=== PATIENT | female | born 1990 | race Hispanic/Latino ===

== ENCOUNTER 2022-08-20 10:52 | Emergency (ER) | payer OTHER ==
--- OUTSIDE RECORDS SUMMARY | 2022-08-20 10:59 | XMS REPORT | Continuity of Care Document ---
:1990 Author Organization [facility] t Address [address] [place] [address] Care Team Providers Name Role Phone Anish Mendoza MD Primary Care Physician CAITIE PERALES Attending Clinician Unavailable Gabby Bojorquez Attending Clinician GABBY BOJORQUEZ Attending Clinician Unavailable WELLNESS Attending Clinician Unavailable Payers Payer Name Policy Type Policy Number Effective Date Expiration Date Kasandra PAL- [id number] 2021 00:00:00 [employer] Problems Condition Condition Condition Status Onset Resolution Last Treating Co mments Source Name Details Category Date Date Treatment Clinician Date UNK UNK Diagnosis Active 2020-09-11 Mem oria Active 08-27 14:03:00 l 08/27/2020 00:00: Rodrigo kyle [address] No known No known Disease Baylo r active active [place] problems problems of Medicin e Gallbladde Gallbladd Problem Active 2020-09-27 Memoria r calculus er 00:53:41 l (disorder) calculus Herm toni (disorder) Active Problem 09/27/2020 Medical Group,[facility] History of History Problem Active 2020-09-27 Memoria - of - 00:53:41 l gynecologi gynecologi He rmann abhilash abhilash disorder disorder (context-d (context-d ependent ependent category) category) Active Problem 09/27/2020 Medical Group, [facility] Simple Simple Problem Active 2020-09-27 Chris chico obesity obesity 00:53:41 l (disorder) (disorder) He rmann Active Problem 09/27/2020 Medical Group Allergies, Adverse Reactions, Alerts Allergy Allergy Status Severity Reaction(s) Onset Inactive Treating Comm ents Source Name Type Date Date Clinician No Known DA Active U 2012-04 [facility] No Known DA Active U NONE 2012-04 [facility] No Known No Known Active Memori a Medicati Medicati l on on [facility] Social History Social Habit Start Date Stop Date Quantity Comments Source History [facility] ge Alcohol Std of Medicine Drinks History [facility] ge Alcohol Binge of Medicine History [facility] ge Alcohol Frequency of Medi cine Alcohol Comment 2021-07-03 2021-07-03 Occasional [facility] 00:00:00 00:00:00 of Medicine Tobacco use and 2021-07-03 2021-07-03 Smokeless tobacco [facility] exposure 00:00:00 00:00:00 non-user of Medicine Alcohol intake 2021-07-03 2021-07-03 0 /d [facility] 00:00:00 00:00:00 of Medicine Exposure to 2021-06-22 2021-07-02 [facility] SARS-CoV-2 00:00:00 10:31:00 of Medicine (event) Social History 2020-08-27 2020-08-27 [facility] sera 19:03:59 19:03:59 Sex [birth year] [facility] 00:00:00 00:00:00 of Medicine Smoking Status Start Date Stop Date Source Never smoked tobacco [facility] Armando ege of Medicine Medications Ordered Filled Start Stop Current Ordering Indication Dosage Frequency Signature Comments Components Source Medication Medication Date Date Medication? Clinician (SIG) Name Name 5-Methyltet Yes Pill form B aylor rahydrofola [address] [employer] (METHYL 09:44: of FOLATE) 24 Medicin POWD e Labetalol No 10 mg, Memori a 09-11 Route: l 15:38: IVP, [place] 00 Q5Min, Dosing Weight 90.568, kg, PRN Elevated BP, Start date: 09/11/20 10:38:00 CDT, Duration: 5 doses or times, Stop date: Limited # of times Acetaminoph 2021-0 No 1,000 mg, M emoria en 09-11 Route: PO, l 15:38: Drug form: Ralph 00 TAB, ONCE, Dosing Weight 90.568, kg, PRN Pain Score 1-3, Start date: 09/11/20 10:38:00 CDT Labetalol 1-0 No 10 mg, Memori a 09-11 Route: l 15:38: IVP, [place] 00 Q5Min, Dosing Weight 90.568, kg, PRN Elevated BP, Start date: 09/11/20 10:38:00 CDT, Duration: 5 doses or times, Stop date: Limited # of times Acetaminoph 2021-0 No 1,000 mg, M emoria en 09-11 Route: PO, l 15:38: Drug form: Ralph 00 TAB, ONCE, Dosing Weight 90.568, kg, PRN Pain Score 1-3, Start date: 09/11/20 10:38:00 CDT Fentanyl 1-0 No 25 Memoria 6-02 microgram, l 15:38: Route: Ralph 00 IVP, Q5Min, Dosing Weight 90.568, kg, PRN Pain Score 4-6, Priority: Routine, Start date: 09/11/20 10:38:00 CDT, Duration: 4 doses or times, Stop date: Limited # of times Fentanyl 2021-0 No 25 Memoria 6-02 microgram, l 15:38: Route: Ralph 00 IVP, Q5Min, Dosing Weight 90.568, kg, PRN Pain Score 4-6, Priority: Routine, Start date: 09/11/20 10:38:00 CDT, Duration: 4 doses or times, Stop date: Limited # of times Hydromorpho 2021-0 No 0.5 mg, Mem oria ne 09-11 Route: l 15:38: IVP, [place] 00 Q5Min, Dosing Weight 90.568, kg, PRN Pain Score 7-10, Start date: 09/11/20 10:38:00 CDT, Duration: 4 doses or times, Stop date: Limited # of times Flumazenil 1-0 No 0.2 mg, Chris ch[place] 09-11 Route: l 15:38: IVP, PRN, [place] 00 Dosing Weight 90.568, kg, PRN Benzodiaze pine Reversal, Initial dose, Start date: 09/11/20 10:38:00 CDT, Duration: 30 day, Stop date: 10/11/20 10:37:00 CDT Naloxone 1-0 No 0.4 mg, Memori a 09-11 Route: l 15:38: IVP, [place] 00 Q2MIN, Dosing Weight 90.568, kg, PRN Narcotic Reversal, Start date: 09/11/20 10:38:00 CDT, Duration: 8 doses or times, Stop date: Limited # of times Meperidine 2020-0 No 12.5 mg, Mem oria 09-11 Route: l 15:38: IVP, [place] 00 Q30Min, Dosing Weight 90.568, kg, PRN Other -See Comment, For shivering, Start date: 09/11/20 10:38:00 CDT, Duration: 2 doses or times, Stop date: Limited # of times Ondansetron 1-0 No 4 mg, Memor ia 09-11 Route: l 15:38: IVP, ONCE, [place] 00 Dosing Weight 90.568, kg, PRN Nausea & Vomiting, Start date: 09/11/20 10:38:00 CDT Hydromorpho 1-0 No 0.5 mg, Mem oria ne 09-11 Route: l 15:38: IVP, [place] 00 Q5Min, Dosing Weight 90.568, kg, PRN Pain Score 7-10, Start date: 09/11/20 10:38:00 CDT, Duration: 4 doses or times, Stop date: Limited # of times Flumazenil 1-0 No 0.2 mg, Chris ch[place] 09-11 Route: l 15:38: IVP, PRN, [place] 00 Dosing Weight 90.568, kg, PRN Benzodiaze pine Reversal, Initial dose, Start date: 09/11/20 10:38:00 CDT, Duration: 30 day, Stop date: 10/11/20 10:37:00 CDT Naloxone 2020-0 No 0.4 mg, Memori a 09-11 Route: l 15:38: IVP, [place] 00 Q2MIN, Dosing Weight 90.568, kg, PRN Narcotic Reversal, Start date: 09/11/20 10:38:00 CDT, Duration: 8 doses or times, Stop date: Limited # of times Meperidine 1-0 No 12.5 mg, Mem oria 09-11 Route: l 15:38: IVP, [place] 00 Q30Min, Dosing Weight 90.568, kg, PRN Other -See Comment, For shivering, Start date: 09/11/20 10:38:00 CDT, Duration: 2 doses or times, Stop date: Limited # of times Ondansetron 1-0 No 4 mg, Memor ia 09-11 Route: l 15:38: IVP, ONCE, [place] 00 Dosing Weight 90.568, kg, PRN Nausea & Vomiting, Start date: 09/11/20 10:38:00 CDT Labetalol 1-0 No 10 mg, Memori a 09-11 Route: l 15:38: IVP, [place] 00 Q5Min, Dosing Weight 90.568, kg, PRN Elevated BP, Start date: 09/11/20 10:38:00 CDT, Duration: 5 doses or times, Stop date: Limited # of times Acetaminoph 2020-0 No 1,000 mg, M emoria en 09-11 Route: PO, l 15:38: Drug form: Ralph 00 TAB, ONCE, Dosing Weight 90.568, kg, PRN Pain Score 1-3, Start date: 09/11/20 10:38:00 CDT Fentanyl 2020-0 No 25 Memoria -02 microgram, l 15:38: Route: [place] 00 IVP, Q5Min, Dosing Weight 90.568, kg, PRN Pain Score 4-6, Priority: Routine, Start date: 09/11/20 10:38:00 CDT, Duration: 4 doses or times, Stop date: Limited # of times Hydromorpho 1-0 No 0.5 mg, Mem oria ne 6-02 Route: l 15:38: IVP, [place] 00 Q5Min, Dosing Weight 90.568, kg, PRN Pain Score 7-10, Start date: 09/11/20 10:38:00 CDT, Duration: 4 doses or times, Stop date: Limited # of times Flumazenil 2020-0 No 0.2 mg, Chris chico 09-11 Route: l 15:38: IVP, PRN, [place] 00 Dosing Weight 90.568, kg, PRN Benzodiaze pine Reversal, Initial dose, Start date: 09/11/20 10:38:00 CDT, Duration: 30 day, Stop date: 10/11/20 10:37:00 CDT Naloxone 2020-0 No 0.4 mg, Memori a 09-11 Route: l 15:38: IVP, [place] 00 Q2MIN, Dosing Weight 90.568, kg, PRN Narcotic Reversal, Start date: 09/11/20 10:38:00 CDT, Duration: 8 doses or times, Stop date: Limited # of times Meperidine 2020-0 No 12.5 mg, Mem oria 09-11 Route: l 15:38: IVP, [place] 00 Q30Min, Dosing Weight 90.568, kg, PRN Other -See Comment, For shivering, Start date: 09/11/20 10:38:00 CDT, Duration: 2 doses or times, Stop date: Limited # of times Ondansetron 2020-0 No 4 mg, Memor ia 09-11 Route: l 15:38: IVP, ONCE, [place] 00 Dosing Weight 90.568, kg, PRN Nausea & Vomiting, Start date: 09/11/20 10:38:00 CDT Labetalol 2020-0 No 10 mg, Memori a 09-11 Route: l 15:38: IVP, [place] 00 Q5Min, Dosing Weight 90.568, kg, PRN Elevated BP, Start date: 09/11/20 10:38:00 CDT, Duration: 5 doses or times, Stop date: Limited # of times Acetaminoph 2020-0 No 1,000 mg, M emoria en 09-11 Route: PO, l 15:38: Drug form: [place] 00 TAB, ONCE, Dosing Weight 90.568, kg, PRN Pain Score 1-3, Start date: 09/11/20 10:38:00 CDT Fentanyl 2020-0 No 25 Memoria - microgram, l 15:38: Route: [place] 00 IVP, Q5Min, Dosing Weight 90.568, kg, PRN Pain Score 4-6, Priority: Routine, Start date: 09/11/20 10:38:00 CDT, Duration: 4 doses or times, Stop date: Limited # of times Hydromorpho 2020-0 No 0.5 mg, Mem oria ne 09-11 Route: l 15:38: IVP, [place] 00 Q5Min, Dosing Weight 90.568, kg, PRN Pain Score 7-10, Start date: 09/11/20 10:38:00 CDT, Duration: 4 doses or times, Stop date: Limited # of times Flumazenil 2020-0 No 0.2 mg, Chris chico 09-11 Route: l 15:38: IVP, PRN, [place] 00 Dosing Weight 90.568, kg, PRN Benzodiaze pine Reversal, Initial dose, Start date: 09/11/20 10:38:00 CDT, Duration: 30 day, Stop date: 10/11/20 10:37:00 CDT Naloxone 2020-0 No 0.4 mg, Memori a 09-11 Route: l 15:38: IVP, [place] 00 Q2MIN, Dosing Weight 90.568, kg, PRN Narcotic Reversal, Start date: 09/11/20 10:38:00 CDT, Duration: 8 doses or times, Stop date: Limited # of times Meperidine 2020-0 No 12.5 mg, Mem oria 09-11 Route: l 15:38: IVP, [place] 00 Q30Min, Dosing Weight 90.568, kg, PRN Other -See Comment, For shivering, Start date: 09/11/20 10:38:00 CDT, Duration: 2 doses or times, Stop date: Limited # of times Ondansetron 2020-0 No 4 mg, Memor ia 09-11 Route: l 15:38: IVP, ONCE, [place] 00 Dosing Weight 90.568, kg, PRN Nausea & Vomiting, Start date: 09/11/20 10:38:00 CDT glycopyrrol 0 No Route: IV, Memoria ate (ANES) 09-11 Drug form: l 15:36: INJ, ONCE, Stop date: 09/11/20 10:36:00 CDT neostigmine 0 No Route: IV, Memoria (ANES) 09-11 Drug form: l 15:36: INJ, ONCE, Stop date: 09/11/20 10:36:00 CDT glycopyrrol 0 No Route: IV, Memoria ate (ANES) 09-11 Drug form: l 15:36: INJ, ONCE, Stop date: 09/11/20 10:36:00 CDT neostigmine 0 No Route: IV, Memoria (ANES) 09-11 Drug form: l 15:36: INJ, ONCE, Stop date: 09/11/20 10:36:00 CDT glycopyrrol 0 No Route: IV, Memoria ate (ANES) 09-11 Drug form: l 15:36: INJ, ONCE, Stop date: 09/11/20 10:36:00 CDT neostigmine 0 No Route: IV, Memoria (ANES) 09-11 Drug form: l 15:36: INJ, ONCE, Stop date: 09/11/20 10:36:00 CDT glycopyrrol 0 No Route: IV, Memoria ate (ANES) 09-11 Drug form: l 15:36: INJ, ONCE, Stop date: 09/11/20 10:36:00 CDT neostigmine 0 No Route: IV, Memoria (ANES) 09-11 Drug form: l 15:36: INJ, ONCE, Stop date: 09/11/20 10:36:00 CDT phenylephri 0 No Route: IV, Memoria ne (ANES) 09-11 Drug form: l 15:33: INJ, ONCE, Stop date: 09/11/20 10:33:00 CDT Docusate 0 Yes 100 mg = 1 Mem oria Sodium 100 6-02 cap, PO, l MG Oral 15:33: BID, PRN Rodrigo n Capsule 00 Constipati [Colace] on, # 20 cap, 0 Refill(s), Pharmacy: [facility], 165.1, cm, 09/04/20 9:49:00 CDT, Height, 90.568, kg, 09/04/20 9:49:00 CDT, Weight Acetaminoph 0 Yes 1 tab, PO, Memoria en 300 MG / 6-02 Q6H, PRN l Codeine 15:33: pain, X 7 Marce nn Phosphate 00 day, # 28 30 MG Oral tab, 0 Tablet Refill(s), [Tylenol Pharmacy: with [facility], 165.1, cm, 09/04/20 9:49:00 CDT, Height, 90.568, kg, 09/04/20 9:49:00 CDT, Weight phenylephri No Route: IV, Memoria ne (ANES) 09-11 Drug form: l 15:33: INJ, ONCE, [place] 00 Stop date: 09/11/20 10:33:00 CDT Docusate Yes 100 mg = 1 Mem oria Sodium 100 6-02 cap, PO, l MG Oral 15:33: BID, PRN Rodrigo n Capsule 00 Constipati [Colace] on, # 20 cap, 0 Refill(s), Pharmacy: [facility], 165.1, cm, 09/04/20 9:49:00 CDT, Height, 90.568, kg, 09/04/20 9:49:00 CDT, Weight Acetaminoph 0 Yes 1 tab, PO, Memoria en 300 MG / 6-02 Q6H, PRN l Codeine 15:33: pain, X 7 Marce nn Phosphate 00 day, # 28 30 MG Oral tab, 0 Tablet Refill(s), [Tylenol Pharmacy: with [facility]] [facility]acy 3298, 165.1, cm, 09/04/20 9:49:00 CDT, Height, 90.568, kg, 09/04/20 9:49:00 CDT, Weight phenylephri 2021-0 No Route: IV, Memoria ne (ANES) 09-11 Drug form: l 15:33: INJ, ONCE, Stop date: 09/11/20 10:33:00 CDT Docusate Yes 100 mg = 1 Mem oria Sodium 100 6-02 cap, PO, l MG Oral 15:33: BID, PRN Rodrigo n Capsule 00 Constipati [Colace] on, # 20 cap, 0 Refill(s), Pharmacy: [facility], 165.1, cm, 09/04/20 9:49:00 CDT, Height, 90.568, kg, 09/04/20 9:49:00 CDT, Weight Acetaminoph Yes 1 tab, PO, Memoria en 300 MG / 6-02 Q6H, PRN l Codeine 15:33: pain, X 7 Marce nn Phosphate 00 day, # 28 30 MG Oral tab, 0 Tablet Refill(s), [Tylenol Pharmacy: with [facility]] Pharmacy 3298, 165.1, cm, 09/04/20 9:49:00 CDT, Height, 90.568, kg, 09/04/20 9:49:00 CDT, Weight phenylephri No Route: IV, Memoria ne (ANES) 09-11 Drug form: l 15:33: INJ, ONCE, Stop date: 09/11/20 10:33:00 CDT Docusate Yes 100 mg = 1 Mem oria Sodium 100 6-02 cap, PO, l MG Oral 15:33: BID, PRN Rodrigo n Capsule 00 Constipati [Colace] on, # 20 cap, 0 Refill(s), Pharmacy: [facility], 165.1, cm, 09/04/20 9:49:00 CDT, Height, 90.568, kg, 09/04/20 9:49:00 CDT, Weight Acetaminoph Yes 1 tab, PO, Memoria en 300 MG / 6-02 Q6H, PRN l Codeine 15:33: pain, X 7 Marce nn Phosphate 00 day, # 28 30 MG Oral tab, 0 Tablet Refill(s), [facility], 165.1, cm, 09/04/20 9:49:00 CDT, Height, 90.568, kg, 09/04/20 9:49:00 CDT, Weight lidocaine 2020-0 No Route: IV, Me moria (ANES) 09-11 Drug form: l 15:18: INJ, ONCE, [place] 00 Stop date: 09/11/20 10:18:00 CDT rocuronium 2020-0 No Route: IV, M emoria (ANES) 09-11 Drug form: l 15:18: INJ, ONCE, Stop date: 09/11/20 10:18:00 CDT succinylcho 2020-0 No Route: IV, Memoria line (ANES) 09-11 Drug form: l 15:18: INJ, ONCE, Stop date: 09/11/20 10:18:00 CDT dexamethaso 2020-0 No Route: IV, Memoria ne (ANES) 09-11 Drug form: l 15:18: INJ, ONCE, Stop date: 09/11/20 10:18:00 CDT midazolam 2020-0 No Route: IV, Me moria (ANES) 09-11 Drug form: l 15:18: SOLN, ONCE, Stop date: 09/11/20 10:18:00 CDT lidocaine 2020-0 No Route: IV, Me moria (ANES) 09-11 Drug form: l 15:18: INJ, ONCE, Stop date: 09/11/20 10:18:00 CDT rocuronium 2020-0 No Route: IV, M emoria (ANES) 09-11 Drug form: l 15:18: INJ, ONCE, Stop date: 09/11/20 10:18:00 CDT succinylcho 2020-0 No Route: IV, Memoria line (ANES) 09-11 Drug form: l 15:18: INJ, ONCE, Stop date: 09/11/20 10:18:00 CDT dexamethaso 2020-0 No Route: IV, Memoria ne (ANES) 09-11 Drug form: l 15:18: INJ, ONCE, [place] 00 Stop date: 09/11/20 10:18:00 CDT midazolam 2020-0 No Route: IV, Me moria (ANES) 09-11 Drug form: l 15:18: SOLN, [place] 00 ONCE, Stop date: 09/11/20 10:18:00 CDT lidocaine 2020-0 No Route: IV, Me moria (ANES) 09-11 Drug form: l 15:18: INJ, ONCE, [place] 00 Stop date: 09/11/20 10:18:00 CDT rocuronium 2020-0 No Route: IV, M emoria (ANES) 09-11 Drug form: l 15:18: INJ, ONCE, [place] 00 Stop date: 09/11/20 10:18:00 CDT succinylcho 2020-0 No Route: IV, Memoria line (ANES) 09-11 Drug form: l 15:18: INJ, ONCE, Stop date: 09/11/20 10:18:00 CDT dexamethaso 2020-0 No Route: IV, Memoria ne (ANES) 09-11 Drug form: l 15:18: INJ, ONCE, [place] 00 Stop date: 09/11/20 10:18:00 CDT midazolam 2020-0 No Route: IV, Me moria (ANES) 09-11 Drug form: l 15:18: SOLN, [place] 00 ONCE, Stop date: 09/11/20 10:18:00 CDT midazolam 2020-0 No Route: IV, Me moria (ANES) 09-11 Drug form: l 15:18: SOLN, [place] 00 ONCE, Stop date: 09/11/20 10:18:00 CDT lidocaine 2020-0 No Route: IV, Me moria (ANES) 09-11 Drug form: l 15:18: INJ, ONCE, [place] 00 Stop date: 09/11/20 10:18:00 CDT rocuronium 2020-0 No Route: IV, M emoria (ANES) 09-11 Drug form: l 15:18: INJ, ONCE, [place] 00 Stop date: 09/11/20 10:18:00 CDT succinylcho 2020-0 No Route: IV, Memoria line (ANES) - Drug form: l 15:18: INJ, ONCE, Stop date: 09/11/20 10:18:00 CDT dexamethaso 2020-0 No Route: IV, Memoria ne (ANES) 6- Drug form: l 15:18: INJ, ONCE, Stop date: 09/11/20 10:18:00 CDT ondansetron 2020-0 No Route: IV, Memoria (ANES) 6- Drug form: l 15:12: INJ, ONCE, Stop date: 09/11/20 10:12:00 CDT ondansetron 2020-0 No Route: IV, Memoria (ANES) 6- Drug form: l 15:12: INJ, ONCE, Stop date: 09/11/20 10:12:00 CDT ondansetron 2020-0 No Route: IV, Memoria (ANES) 6- Drug form: l 15:12: INJ, ONCE, Stop date: 09/11/20 10:12:00 CDT ondansetron 2020-0 No Route: IV, Memoria (ANES) 09-11 Drug form: l 15:12: INJ, ONCE, Stop date: 09/11/20 10:12:00 CDT fentaNYL 2020-0 No Route: IV, Mem oria (ANES) 09-11 Drug form: l 15:07: INJ, ONCE, Stop date: 09/11/20 10:07:00 CDT propofol 2020-0 No Route: IV, Mem oria (ANES) 6- Drug form: l 15:07: INJ, ONCE, Stop date: 09/11/20 10:07:00 CDT ceFAZolin 2020-0 No Route: IV, Me moria (ANES) 6- Drug form: l 15:07: INJ, ONCE, Stop date: 09/11/20 10:07:00 CDT fentaNYL 2020-0 No Route: IV, Mem oria (ANES) - Drug form: l 15:07: INJ, ONCE, Stop date: 09/11/20 10:07:00 CDT propofol 2021-0 No Route: IV, Mem oria (ANES) 6- Drug form: l 15:07: INJ, ONCE, Stop date: 09/11/20 10:07:00 CDT ceFAZolin 2020-0 No Route: IV, Me moria (ANES) 6- Drug form: l 15:07: INJ, ONCE, Stop date: 09/11/20 10:07:00 CDT fentaNYL 2020-0 No Route: IV, Mem oria (ANES) 6- Drug form: l 15:07: INJ, ONCE, Stop date: 09/11/20 10:07:00 CDT propofol 2020-0 No Route: IV, Mem oria (ANES) 6- Drug form: l 15:07: INJ, ONCE, Stop date: 09/11/20 10:07:00 CDT ceFAZolin 2020-0 No Route: IV, Me moria (ANES) 6- Drug form: l 15:07: INJ, ONCE, Stop date: 09/11/20 10:07:00 CDT fentaNYL 2020-0 No Route: IV, Mem oria (ANES) 6- Drug form: l 15:07: INJ, ONCE, Stop date: 09/11/20 10:07:00 CDT propofol 2020-0 No Route: IV, Mem oria (ANES) 6- Drug form: l 15:07: INJ, ONCE, Stop date: 09/11/20 10:07:00 CDT ceFAZolin 2020-0 No Route: IV, Me moria (ANES) 6-02 Drug form: l 15:07: INJ, ONCE, Stop date: 09/11/20 10:07:00 CDT Lactated 2020-0 No Route: IV, Mem oria Ringers 6-02 Total l Injection 14:32: Volume: Marce nn IV (ANES) 00 1,000, 1000 mL Start date: 09/11/20 9:32:00 CDT, Stop date: 09/11/20 10:32:00 CDT Lactated 2020-0 No Route: IV, Mem oria Ringers 6-02 Total l Injection 14:32: Volume: Marce nn IV (ANES) 00 1,000, 1000 mL Start date: 09/11/20 9:32:00 CDT, Stop date: 09/11/20 10:32:00 CDT Lactated 2020-0 No Route: IV, Mem oria Ringers 6-02 Total l Injection 14:32: Volume: Marce nn IV (ANES) 00 1,000, 1000 mL Start date: 09/11/20 9:32:00 CDT, Stop date: 09/11/20 10:32:00 CDT Lactated 2020-0 No Route: IV, Mem oria Ringers 6-02 Total l Injection 14:32: Volume: Marce nn IV (ANES) 00 1,000, 1000 mL Start date: 09/11/20 9:32:00 CDT, Stop date: 09/11/20 10:32:00 CDT Calcium 2020-0 No 1,000 mL, Memor ia Chloride 6-02 Rate: 75 l 0.0014 13:37: ml/hr, Ralph MEQ/ML / 00 Infuse Potassium over: 13.3 Chloride hr, Route: 0.004 IV, Dosing MEQ/ML / Weight Sodium 90.568 kg, Chloride Total 0.103 Volume: MEQ/ML / 1,000, Sodium Start Lactate date: 0.028 09/11/20 MEQ/ML 8:37:00 Injectable CDT, Solution Duration: 1 day, Stop date: 09/12/20 8:36:00 CDT, BSA: 2.07 m2, 0 Calcium 2020-0 No 1,000 mL, Memor ia Chloride 6-02 Rate: 75 l 0.0014 13:37: ml/hr, [place] MEQ/ML / 00 Infuse Potassium over: 13.3 Chloride hr, Route: 0.004 IV, Dosing MEQ/ML / Weight Sodium 90.568 kg, Chloride Total 0.103 Volume: MEQ/ML / 1,000, Sodium Start Lactate date: 0.028 09/11/20 MEQ/ML 8:37:00 Injectable CDT, Solution Duration: 1 day, Stop date: 09/12/20 8:36:00 CDT, BSA: 2.07 m2, 0 Calcium 2020-0 No 1,000 mL, Memor ia Chloride 6-02 Rate: 75 l 0.0014 13:37: ml/hr, [place] MEQ/ML / 00 Infuse Potassium over: 13.3 Chloride hr, Route: 0.004 IV, Dosing MEQ/ML / Weight Sodium 90.568 kg, Chloride Total 0.103 Volume: MEQ/ML / 1,000, Sodium Start Lactate date: 0.028 09/11/20 MEQ/ML 8:37:00 Injectable CDT, Solution Duration: 1 day, Stop date: 09/12/20 8:36:00 CDT, BSA: 2.07 m2, 0 Calcium 2020- No 1,000 mL, Memor ia Chloride 09-11 Rate: 75 l 0.0014 13:37: ml/hr, Ralph MEQ/ML / 00 Infuse Potassium over: 13.3 Chloride hr, Route: 0.004 IV, Dosing MEQ/ML / Weight Sodium 90.568 kg, Chloride Total 0.103 Volume: MEQ/ML / 1,000, Sodium Start Lactate date: 0.028 09/11/20 MEQ/ML 8:37:00 Injectable CDT, Solution Duration: 1 day, Stop date: 09/12/20 8:36:00 CDT, BSA: 2.07 m2, 0 Metformin Yes 500 mg = 1 Me moria hydrochlori 5-26 tab, PO, l de 500 MG 14:54: Daily, Rodrigo n Oral Tablet 00 take with a meal, # 30 tab, 1 Refill(s) Metformin Yes 500 mg = 1 Me moria hydrochlori 5-26 tab, PO, l de 500 MG 14:54: Daily, Rodrigo n Oral Tablet 00 take with a meal, # 30 tab, 1 Refill(s) Metformin Yes 500 mg = 1 Me moria hydrochlori 5-26 tab, PO, l de 500 MG 14:54: Daily, Rodrigo n Oral Tablet 00 take with a meal, # 30 tab, 1 Refill(s) Metformin Yes 500 mg = 1 Me moria hydrochlori 5-26 tab, PO, l de 500 MG 14:54: Daily, Rodrigo n Oral Tablet 00 take with a meal, # 30 tab, 1 Refill(s) Metformin Yes 1,000 mg = Me moria hydrochlori 5-18 1 tab, PO, l de 1000 MG 19:04: BID, 0 Marce nn Oral Tablet 00 Refill(s) Metformin Yes 1,000 mg = Me moria hydrochlori 5-18 1 tab, PO, l de 1000 MG 19:04: BID, 0 Marce nn Oral Tablet 00 Refill(s) Metformin Yes 1,000 mg = Me moria hydrochlori 5-18 1 tab, PO, l de 1000 MG 19:04: BID, 0 Marce nn Oral Tablet 00 Refill(s) Metformin Yes 1,000 mg = Me moria hydrochlori 5-18 1 tab, PO, l de 1000 MG 19:04: BID, 0 Marce nn Oral Tablet 00 Refill(s) metformin Yes [facility] (GLUCOPHAGE 3-23 [place] ) 500 MG 00:00: of tablet 00 Medicin e Vital Signs Vital Name Observation Time Observation Value Comments Source Body height 2021-07-03 14:43:00 165.1 cm [facility] Body weight 2021-07-03 14:43:00 91.173 kg [facility] BMI 2021-07-03 14:43:00 33.45 kg/m2 [facility] Height 2020-09-24 13:51:00 165.1 cm [facility] Weight 2020-09-24 13:51:00 [facility] BMI Calculated 2020-09-24 13:51:00 [facility] Respitory Rate 2020-09-11 16:45:00 [facility] [place] Systolic (mm Hg) 2020-09-11 16:45:00 Chris rial [place] Diastolic (mm Hg) 2020-09-11 16:45:00 [facility] Respitory Rate 2020-09-11 16:30:00 [facility] [place] Systolic (mm Hg) 2020-09-11 16:30:00 Chris rial [facility] Diastolic (mm Hg) 2020-09-11 16:30:00 Mem o[facility] [place] Respitory Rate 2020-09-11 16:16:00 [facility] Systolic (mm Hg) 2020-09-11 16:16:00 Chris rial [place] Diastolic (mm Hg) 2020-09-11 16:16:00 [facility] Height 2020-09-04 14:49:00 165.1 cm [facility] Weight 2020-09-04 14:49:00 [facility] BMI Calculated 2020-09-04 14:49:00 [facility] [place] Systolic (mm Hg) 2020-08-27 18:56:00 Chris rial [facility] Diastolic (mm Hg) 2020-08-27 18:56:00 [facility] Heart Rate 2020-08-27 18:56:00 [facility] [place] Height 2020-08-27 18:56:00 165.1 cm [facility] [place] Weight 2020-08-27 18:56:00 [facility] BMI Calculated 2020-08-27 18:56:00 Trina omer [place] Procedures Procedure Date / Time Performing Clinician Source Performed Laparoscopic 2020-09-11 05:00:00 [facility] cholecystectomy IVF [facility] Plan of Care Planned Activity Planned Date Details Comments Source Future Scheduled 2021-07-03 TETANUS SHOT (ADULT) [facility] Test 13:59:45 [code = TETANUS SHOT of Medi cine (ADULT)] Future Scheduled 2021-07-03 BMI FOLLOW UP PLAN [facility] Test 13:59:45 [code = BMI FOLLOW UP of Med icine PLAN] Future Scheduled 2021-07-03 Hepatitis C screening [facility] Test 13:59:45 (procedure) [code = of Medic ine [id number]] Future Scheduled 2021-07-03 Human immunodeficiency B [facility] Test 13:59:45 virus screening of Medicine (procedure) [code = 681705361] Future Scheduled 2021-07-03 Screening for malignant [facility] Test 13:59:45 neoplasm of cervix of Medici ne (procedure) [code = 429639944] Future Scheduled 2021-07-03 FLU VACCINE > 6 MONTHS B [facility] Test 13:59:45 [code = FLU VACCINE > 6 of M edicine MONTHS] Future Scheduled 2021-07-03 COVID-19 Vaccine (3 - Ba [facility] Test 13:59:45 Booster for Pfizer of Medici ne series) [code = COVID-19 Vaccine (3 - Booster for Pfizer series)] Future Scheduled 2021-07-03 ORT - XR FOOT BILAT 3V Ordered: [facility] Test 09:42:33 (CHARGE ONLY) [code = 07/03/2021 of Med icikings 01192] Encounters Start End Encounter Admission Attending Care Care Encounter Source Date/Time Date/Time Type Type Clinicians Facility Department ID 2021-07-03 2021-07-03 Office [facility] [id number] [facility] 09:36:20 10:03:54 Visit [facility] [id number] College Y [id number] of [id number] Medi hi 600 e 2021-07-03 2021-07-03 Outpatient [facility] [id number] [facility] 09:44:17 09:44:17 Hebert nelson of Medicin e 2020-09-24 2020-09-25 Outpatient nullFlavo [facility] [id number] [facility] 14:00:00 04:59:59 r General 03 l Surgery [facility] 2020-09-24 2020-09-25 Outpatient nullFlavo [facility] [id number] [facility] 14:00:00 04:59:59 r General 03 l [facility] 2020-09-24 2020-09-24 Outpatient Gabby Bojorquez MG [facility] [id number] 09:00:00 23:59:59 [facility] 2020-09-24 2020-09-24 Ambulatory nullFlavo [facility] [id number] [facility] 14:00:00 14:00:00 Pre-Reg r General 02 l Surgery [facility] 2020-09-24 2020-09-24 Ambulatory nullFlavo [facility] [id number] [facility] 14:00:00 14:00:00 Pre-Reg r General 02 l [facility] 2020-09-24 2020-09-24 Outpatient MHIE MHIE [id number] [facility] 09:00:00 09:00:00 03 l [place] 2020-09-24 2020-09-24 Outpatient MHIE MHIE [id number] [facility] 09:00:00 09:00:00 02 l [place] 2020-09-24 2020-09-24 Outpatient Gabby Bojorquez MG [facility] [id number] 09:00:00 09:00:00 [facility] 2020-09-11 2020-09-11 Day nullFlavo [facility] [id number] Mem[facility] 12:26:00 17:08:00 Surgery r [place] 00 l [facility] 2020-09-11 2020-09-11 Day nullFlavo [facility] [id number] [facility] 12:26:00 17:08:00 Surgery r [place] 00 l [facility] 2020-09-11 2020-09-11 Outpatient [facility]by [facility] [id number] 07:26:00 12:08:00 [place] 2020-09-11 2020-09-11 Outpatient GABBY BOJORQUEZ SE [facility]SE [id number] MH 07:26:00 12:08:00 [facility] 2020-09-11 2020-09-11 Outpatient Gabby [facility]jorquez[facility] [id number] 07:26:00 12:08:00 [place] 2020-09-11 2020-09-11 Outpatient MHIE MHIE [id number] [facility] 10:30:00 10:30:00 01 [facility] 2020-09-11 2020-09-11 Outpatient MHIE MHIE [id number] [facility] 10:30:00 10:30:00 01 [facility] 2020-08-27 2020-08-28 [place] [id number] [facility] 18:45:00 04:59:59 r General 00 l [facility] 2020-08-27 2020-08-28 [place] [id number] [facility] 18:45:00 04:59:59 r General 00 l [facility] 2020-08-27 2020-08-27 [place] [id number] 13:45:00 23:59:59 [place] 2020-08-27 2020-08-27 Outpatient MHIE MHIE [id number] [facility] 13:45:00 13:45:00 00 [facility] 2019-06-05 2019-06-05 Outpatient [facility] [id number] [facility] 08:11:00 08:11:[address] [place] [address] [facility] Results Test Description Test Time Test Comments Results Result Comments Source URINE CHEM 2020-09-11 13:37:00 Test Item Value Reference Range Interpretation Comme nts U Preg (test code = U Preg) Negative (09/11/20 8:37 AM) [place] 795751-06-02 13:37:00 Test Item Value Reference Range Interpretation Comments U Preg (test code = U Negative (09/11/20 8:37 Preg) AM) [facility]2021-06-02 13:37:00 Test Item Value Reference Range Interpretation Comments U Preg (test code = U Negative (09/11/20 8:37 Preg) AM) [place] 795751-06-02 13:37:00 Test Item Value Reference Range Interpretation Comments U Preg (test code = U Negative (09/11/20 8:37 Preg) AM) [facility]it[facility]wWYARHQRBKW1942-17-75 12:22:00 Test Item Value Reference Range Interpretation Comments WBC (test code = WBC) 6.2 3.7-10.4 [place] 720571-06-01 12:22:00 Test Item Value Reference Range Interpretation Comments RBC (test code = RBC) 4.15 4.20-5.[address] [facility]IzjwuajVGFKKPIWKL7306-98-06 12:22:00 Test Item Value Reference Range Interpretation Comments Hgb (test code = Hgb) 13.1 12.0-16.0 [place] 720571-06-01 12:22:00 Test Item Value Reference Range Interpretation Comments Hct (test code = Hct) 39.4 36.0-48.0 [place] 720571-06-01 12:22:00 Test Item Value Reference Range Interpretation Comments MCV (test code = MCV) 95.0 80.0-98.0 [place] 720571-06-01 12:22:00 Test Item Value Reference Range Interpretation Comments MCH (test code = MCH) 31.7 pg 27.0-31.0 [place] 720571-06-01 12:22:00 Test Item Value Reference Range Interpretation Comments MCHC (test code = MCHC) 33.4 32.0-36.0 [place] 720571-06-01 12:22:00 Test Item Value Reference Range Interpretation Comments RDW (test code = RDW) 13.0 11.5-14.[address] [facility] HospitalPusidwxBERZTYVQBB4058-60-81 12:22:00 Test Item Value Reference Range Interpretation Comments Platelet (test code = Platelet) 247 133-[address] [facility] HospitalUmwxnpnWJUXWBSTLB3817-70-86 12:22:00 Test Item Value Reference Range Interpretation Comments MPV (test code = MPV) 10.0 7.4-10.4 [place] 720571-06-01 12:22:00 Test Item Value Reference Range Interpretation Comments PT (test code = PT) 12.1 s 12.0-14.7 [place] 720571-06-01 12:22:00 Test Item Value Reference Range Interpretation Comments INR (test code = INR) 0.90 1 0.85-1.17 [place] 720571-06-01 12:22:00 Test Item Value Reference Range Interpretation Comments PTT (test code = PTT) 32.0 s 22.9-35.8 [place] 720571-06-01 12:22:00 Test Item Value Reference Range Interpretation Comments Segs (test code = Segs) 55.0 45.0-75.0 [place] 720571-06-01 12:22:00 Test Item Value Reference Range Interpretation Comments Lymphocytes (test code = Lymphocytes) 35.6 20.0-40.[address] [facility] HospitalIhcvgvoKZQFZVMXXM7157-70-72 12:22:00 Test Item Value Reference Range Interpretation Comments Monocytes (test code = Monocytes) 6.9 2.0-12.0 [place] 720571-06-01 12:22:00 Test Item Value Reference Range Interpretation Comments Eosinophils (test code = 1.6 See_Comment [A utomated message] The Eosinophils) system which ge nerated this result tra nsmitted reference range : <=4.0. The reference r jeannie was not used to int erpret this result as normal/abnormal . [place] 720571-06-01 12:22:00 Test Item Value Reference Range Interpretation Comments Basophils (test code = 0.9 See_Comment [Aut omated message] The Basophils) system which ge nerated this result tra nsmitted reference range : <=1.0. The reference r jeannie was not used to int erpret this result as normal/abnormal . [place] 720571-06-01 12:22:00 Test Item Value Reference Range Interpretation Comments Neutrophils # (test code = Neutrophils 3.4 1.5-8.1 #) [place] 720571-06-01 12:22:00 Test Item Value Reference Range Interpretation Comments Lymphocytes # (test code = Lymphocytes 2.2 1.0-5.5 #) [place] 720571-06-01 12:22:00 Test Item Value Reference Range Interpretation Comments Monocytes # (test code 0.4 See_Comment [Aut omated message] The = Monocytes #) system which generated this result tra nsmitted reference range : <=0.8. The reference r jeannie was not used to int erpret this result as normal/abnormal . [place] 720571-06-01 12:22:00 Test Item Value Reference Range Interpretation Comments Eosinophils # (test code 0.1 See_Comment [A utomated message] The = Eosinophils #) system whic h generated this result tra nsmitted reference range : <=0.5. The reference r jeannie was not used to int erpret this result as normal/abnormal . [place] 720571-06-01 12:22:00 Test Item Value Reference Range Interpretation Comments Basophils # (test code 0.1 See_Comment [Aut omated message] The = Basophils #) system which generated this result tra nsmitted reference range : <=0.2. The reference r jeannie was not used to int erpret this result as normal/abnormal . [place] 720571-06-01 12:22:00 Test Item Value Reference Range Interpretation Comments WBC (test code = WBC) 6.2 3.7-10.4 [place] 720571-06-01 12:22:00 Test Item Value Reference Range Interpretation Comments RBC (test code = RBC) 4.15 4.20-5.40 [place] 720571-06-01 12:22:00 Test Item Value Reference Range Interpretation Comments Hgb (test code = Hgb) 13.1 12.0-16.0 [place] [address]-06-01 12:22:00 Test Item Value Reference Range Interpretation Comments Hct (test code = Hct) 39.4 36.0-48.0 [place] 720571-06-01 12:22:00 Test Item Value Reference Range Interpretation Comments MCV (test code = MCV) 95.0 80.0-98.0 [place] 720571-06-01 12:22:00 Test Item Value Reference Range Interpretation Comments MCH (test code = MCH) 31.7 pg 27.0-31.0 [place] 720571-06-01 12:22:00 Test Item Value Reference Range Interpretation Comments MCHC (test code = MCHC) 33.4 32.0-36.[address] [facility] HospitalNfsdwzfRVQSRNOTNC4638-86-28 12:22:00 Test Item Value Reference Range Interpretation Comments RDW (test code = RDW) 13.0 11.5-14.5 [place] 720571-06-01 12:22:00 Test Item Value Reference Range Interpretation Comments Platelet (test code = Platelet) 247 133-[address] [facility] HospitalFxziwsxJWKTPNIVUL5252-00-11 12:22:00 Test Item Value Reference Range Interpretation Comments MPV (test code = MPV) 10.0 7.4-10.[address] [facility] HospitalXktdmrkKJVECZYDRG8848-52-60 12:22:00 Test Item Value Reference Range Interpretation Comments PT (test code = PT) 12.1 s 12.0-14.7 [place] 720571-06-01 12:22:00 Test Item Value Reference Range Interpretation Comments INR (test code = INR) 0.90 1 0.85-1.17 [place] 720571-06-01 12:22:00 Test Item Value Reference Range Interpretation Comments PTT (test code = PTT) 32.0 s 22.9-35.8 [place] 720571-06-01 12:22:00 Test Item Value Reference Range Interpretation Comments Segs (test code = Segs) 55.0 45.0-75.[address] [facility] HospitalQyknnadWJQLGZLISD3346-20-27 12:22:00 Test Item Value Reference Range Interpretation Comments Lymphocytes (test code = Lymphocytes) 35.6 20.0-40.0 [place] 720571-06-01 12:22:00 Test Item Value Reference Range Interpretation Comments Monocytes (test code = Monocytes) 6.9 2.0-12.0 [place] 720571-06-01 12:22:00 Test Item Value Reference Range Interpretation Comments Eosinophils (test code = 1.6 See_Comment [A utomated message] The Eosinophils) system which ge nerated this result tra nsmitted reference range : <=4.0. The reference r jeannie was not used to int erpret this result as normal/abnormal . [facility] HospitalAopazjgDXXJNYDLJF8954-65-48 12:22:00 Test Item Value Reference Range Interpretation Comments Basophils (test code = 0.9 See_Comment [Aut omated message] The Basophils) system which ge nerated this result tra nsmitted reference range : <=1.0. The reference r jeannie was not used to int erpret this result as normal/abnormal . [place] 720571-06-01 12:22:00 Test Item Value Reference Range Interpretation Comments Neutrophils # (test code = Neutrophils 3.4 1.5-8.1 #) [place] 720571-06-01 12:22:00 Test Item Value Reference Range Interpretation Comments Lymphocytes # (test code = Lymphocytes 2.2 1.0-5.5 #) [place] 720571-06-01 12:22:00 Test Item Value Reference Range Interpretation Comments Monocytes # (test code 0.4 See_Comment [Aut omated message] The = Monocytes #) system which generated this result tra nsmitted reference range : <=0.8. The reference r jeannie was not used to int erpret this result as normal/abnormal . [place] 720571-06-01 12:22:00 Test Item Value Reference Range Interpretation Comments Eosinophils # (test code 0.1 See_Comment [A utomated message] The = Eosinophils #) system whic h generated this result tra nsmitted reference range : <=0.5. The reference r jeannie was not used to int erpret this result as normal/abnormal . [facility] HospitalAsnrjqlJSAYOXHYWQ9627-57-81 12:22:00 Test Item Value Reference Range Interpretation Comments Basophils # (test code 0.1 See_Comment [Aut omated message] The = Basophils #) system which generated this result tra nsmitted reference range : <=0.2. The reference r jeannie was not used to int erpret this result as normal/abnormal . [place] 720571-06-01 12:22:00 Test Item Value Reference Range Interpretation Comments WBC (test code = WBC) 6.2 3.7-10.4 [place] 720571-06-01 12:22:00 Test Item Value Reference Range Interpretation Comments RBC (test code = RBC) 4.15 4.20-5.40 [place] 720571-06-01 12:22:00 Test Item Value Reference Range Interpretation Comments Hgb (test code = Hgb) 13.1 12.0-16.0 [place] 720571-06-01 12:22:00 Test Item Value Reference Range Interpretation Comments Hct (test code = Hct) 39.4 36.0-48.0 [place] 720571-06-01 12:22:00 Test Item Value Reference Range Interpretation Comments MCV (test code = MCV) 95.0 80.0-98.0 [place] 720571-06-01 12:22:00 Test Item Value Reference Range Interpretation Comments MCH (test code = MCH) 31.7 pg 27.0-31.0 [place] 720571-06-01 12:22:00 Test Item Value Reference Range Interpretation Comments MCHC (test code = MCHC) 33.4 32.0-36.0 [place] 720571-06-01 12:22:00 Test Item Value Reference Range Interpretation Comments RDW (test code = RDW) 13.0 11.5-14.5 [place] 720571-06-01 12:22:00 Test Item Value Reference Range Interpretation Comments Platelet (test code = Platelet) 247 133-[address] [facility] HospitalCvujyhzOYWDQXNWTL1800-46-62 12:22:00 Test Item Value Reference Range Interpretation Comments MPV (test code = MPV) 10.0 7.4-10.4 [place] [address]-06-01 12:22:00 Test Item Value Reference Range Interpretation Comments PT (test code = PT) 12.1 s 12.0-14.7 [place] 720571-06-01 12:22:00 Test Item Value Reference Range Interpretation Comments INR (test code = INR) 0.90 1 0.85-1.17 [place] 720571-06-01 12:22:00 Test Item Value Reference Range Interpretation Comments PTT (test code = PTT) 32.0 s 22.9-35.8 [place] 720571-06-01 12:22:00 Test Item Value Reference Range Interpretation Comments Segs (test code = Segs) 55.0 45.0-75.[address] [facility] HospitalOlppbfqIPHYRJXQFT8695-24-87 12:22:00 Test Item Value Reference Range Interpretation Comments Lymphocytes (test code = Lymphocytes) 35.6 20.0-40.[address] [facility] HospitalEhjhijdEGRSFNVHCB3696-50-59 12:22:00 Test Item Value Reference Range Interpretation Comments Monocytes (test code = Monocytes) 6.9 2.0-12.0 [place] 720571-06-01 12:22:00 Test Item Value Reference Range Interpretation Comments Eosinophils (test code = 1.6 See_Comment [A utomated message] The Eosinophils) system which ge nerated this result tra nsmitted reference range : <=4.0. The reference r jeannie was not used to int erpret this result as normal/abnormal . [place] 720571-06-01 12:22:00 Test Item Value Reference Range Interpretation Comments Basophils (test code = 0.9 See_Comment [Aut omated message] The Basophils) system which ge nerated this result tra nsmitted reference range : <=1.0. The reference r jeannie was not used to int erpret this result as normal/abnormal . [facility] HospitalOwqfzvpELMSQPJUAW5828-11-96 12:22:00 Test Item Value Reference Range Interpretation Comments Neutrophils # (test code = Neutrophils 3.4 1.5-8.1 #) [place] 720571-06-01 12:22:00 Test Item Value Reference Range Interpretation Comments Lymphocytes # (test code = Lymphocytes 2.2 1.0-5.5 #) [place] 720571-06-01 12:22:00 Test Item Value Reference Range Interpretation Comments Monocytes # (test code 0.4 See_Comment [Aut omated message] The = Monocytes #) system which generated this result tra nsmitted reference range : <=0.8. The reference r jeannie was not used to int erpret this result as normal/abnormal . [facility] HospitalQnpgykmIMJTUNGUSS1100-41-13 12:22:00 Test Item Value Reference Range Interpretation Comments Eosinophils # (test code 0.1 See_Comment [A utomated message] The = Eosinophils #) system ic h generated this result tra nsmitted reference range : <=0.5. The reference r jeannie was not used to int erpret this result as normal/abnormal . [facility] HospitalEqbapynQLQGCRMIOB3801-26-35 12:22:00 Test Item Value Reference Range Interpretation Comments Basophils # (test code 0.1 See_Comment [Aut omated message] The = Basophils #) system which generated this result tra nsmitted reference range : <=0.2. The reference r jeannie was not used to int erpret this result as normal/abnormal . [facility] HospitalVyvvqlmKGSXXUCWSV3503-55-32 12:22:00 Test Item Value Reference Range Interpretation Comments WBC (test code = WBC) 6.2 3.7-10.4 [place] 720571-06-01 12:22:00 Test Item Value Reference Range Interpretation Comments RBC (test code = RBC) 4.15 4.20-5.40 [place] 720571-06-01 12:22:00 Test Item Value Reference Range Interpretation Comments Hgb (test code = Hgb) 13.1 12.0-16.0 [place] 720571-06-01 12:22:00 Test Item Value Reference Range Interpretation Comments Hct (test code = Hct) 39.4 36.0-48.0 [place] 720571-06-01 12:22:00 Test Item Value Reference Range Interpretation Comments MCV (test code = MCV) 95.0 80.0-98.[address] [facility] HospitalKorcqheDREDRICWZP3497-72-09 12:22:00 Test Item Value Reference Range Interpretation Comments MCH (test code = MCH) 31.7 pg 27.0-31.[address] [facility] HospitalOvwuqqrXTLAMCYQAA1049-92-35 12:22:00 Test Item Value Reference Range Interpretation Comments MCHC (test code = MCHC) 33.4 32.0-36.0 [place] 720571-06-01 12:22:00 Test Item Value Reference Range Interpretation Comments RDW (test code = RDW) 13.0 11.5-14.5 [place] 720571-06-01 12:22:00 Test Item Value Reference Range Interpretation Comments Platelet (test code = Platelet) 247 133-[address] [facility] HospitalRheovirFASMKVTAAA6976-73-00 12:22:00 Test Item Value Reference Range Interpretation Comments MPV (test code = MPV) 10.0 7.4-10.[address] [facility] HospitalOyvkvxiEJMHYPVLKA2792-27-27 12:22:00 Test Item Value Reference Range Interpretation Comments PT (test code = PT) 12.1 s 12.0-14.7 [place] 720571-06-01 12:22:00 Test Item Value Reference Range Interpretation Comments INR (test code = INR) 0.90 1 0.85-1.17 [place] 720571-06-01 12:22:00 Test Item Value Reference Range Interpretation Comments PTT (test code = PTT) 32.0 s 22.9-35.8 [place] 720571-06-01 12:22:00 Test Item Value Reference Range Interpretation Comments Segs (test code = Segs) 55.0 45.0-75.0 [place] 720571-06-01 12:22:00 Test Item Value Reference Range Interpretation Comments Lymphocytes (test code = Lymphocytes) 35.6 20.0-40.0 [place] 720571-06-01 12:22:00 Test Item Value Reference Range Interpretation Comments Monocytes (test code = Monocytes) 6.9 2.0-12.[address] [facility] HospitalJzixxfcPJLDTSSWRK7419-46-08 12:22:00 Test Item Value Reference Range Interpretation Comments Eosinophils (test code = 1.6 See_Comment [A utomated message] The Eosinophils) system which ge nerated this result tra nsmitted reference range : <=4.0. The reference r jeannie was not used to int erpret this result as normal/abnormal . [place] 720571-06-01 12:22:00 Test Item Value Reference Range Interpretation Comments Basophils (test code = 0.9 See_Comment [Aut omated message] The Basophils) system which ge nerated this result tra nsmitted reference range : <=1.0. The reference r jeannie was not used to int erpret this result as normal/abnormal . [facility] HospitalMogzmvbNSQYALQDKH7729-02-37 12:22:00 Test Item Value Reference Range Interpretation Comments Neutrophils # (test code = Neutrophils 3.4 1.5-8.1 #) [place] 720571-06-01 12:22:00 Test Item Value Reference Range Interpretation Comments Lymphocytes # (test code = Lymphocytes 2.2 1.0-5.5 #) [place] 720571-06-01 12:22:00 Test Item Value Reference Range Interpretation Comments Monocytes # (test code 0.4 See_Comment [Aut omated message] The = Monocytes #) system which generated this result tra nsmitted reference range : <=0.8. The reference r jeannie was not used to int erpret this result as normal/abnormal . [facility] HospitalAcctncjAFTENZKDXU8285-54-95 12:22:00 Test Item Value Reference Range Interpretation Comments Eosinophils # (test code 0.1 See_Comment [A utomated message] The = Eosinophils #) system whic h generated this result tra nsmitted reference range : <=0.5. The reference r jeannie was not used to int erpret this result as normal/abnormal . [facility] HospitalJujhnwaHJFGEEZHDY6466-78-08 12:22:00 Test Item Value Reference Range Interpretation Comments Basophils # (test code 0.1 See_Comment [Aut omated message] The = Basophils #) system which generated this result tra nsmitted reference range : <=0.2. The reference r jeannie was not used to int erpret this result as normal/abnormal . [facility] SystemBfmaawhRVVGPKLNHN3119-15-83 12:11:00 Test Item Value Reference Range Interpretation Comments Coronavirus (COVID-19) Not Detected (09/10/20 DE (test code = 7:11 AM) Coronavirus (COVID-19) DE) [facility] SystemLvrxdloZQLWGLWCFG4952-52-48 12:11:00 Test Item Value Reference Range Interpretation Comments Coronavirus (COVID-19) Not Detected (09/10/20 [place] (test code = 7:11 AM) Coronavirus (COVID-19) DE) [facility] SystemSlcnzsdMTQZQWWYKF9387-60-11 12:11:00 Test Item Value Reference Range Interpretation Comments Coronavirus (COVID-19) Not Detected (09/10/20 [place] (test code = 7:11 AM) Coronavirus (COVID-19) DE) [facility] SystemXgfgainKNSQVNVNVN2177-69-98 12:11:00 Test Item Value Reference Range Interpretation Comments Coronavirus (COVID-19) Not Detected (09/10/20 [place] (test code = 7:11 AM) Coronavirus (COVID-19) DE) [facility] [id number] 12:16:00 Test Item Value Reference Range Interpretation Comments HCG SERUM [id number] mIU/ml 0-6 H Values for B-h CG generally (test code = peak during the first HCG) trimesterand de day slowly througho ut the remainder of epregnancy. A sharply reduc ed or falling serum B -hCG levelmay indica te an abnormal pregna ncy, and additonal clinicalevaluat ion and follow-up august e appropriate. HC G rangesduring no rmal , as r eported in the literature, aresummarized below.......... ........... ............... ........... ..............A pproximate hCG Approximate GestationalRang e mIU/mL[IU/L] Age ---- ------5 - 50 0.2 - 1 Week 50 - 500 1 - 2 Ppbvv773 - 5000 2 - 3 Uxleq101 - 10,0 00 3 - 4 Ctaal4462 - 50, 000 4 - 5 Weeks10,000 - 1 00,000 5 - 6 Weeks15,000 - 200,000 6 - 8 Weeks10,000 - 100,000 2 - 3 Months
--- NOTE | 2022-08-20 11:15 | ER ---
Nurse's Notes [facility] Name: Arlene Hatch Age: 31 yrs Sex: Female : 1990 Arrival Date: 08/20/2022 Time: 10:52 Bed 13 Private MD: Diagnosis: Rash and other nonspecific skin eruption Presentation: 08/20 11:05 Chief complaint: Patient states: Itchy rash since . GRANT arms, legs, chest. ld1 Coronavirus screen: At this time, the client does not indicate any symptoms associated with coronavirus-19. Ebola Screen: No symptoms or risks identified at this time. Initial Sepsis Screen:. Onset of symptoms was August 20, 2022. 11:05 Method Of Arrival: Ambulatory ld1 11:05 Acuity: KASIA 4 ld1 11:10 Initial Sepsis Screen: Does the patient meet any 2 criteria? No. Patient's initial nj1 sepsis screen is negative. Does the patient have a suspected source of infection? No. Patient's initial sepsis screen is negative. Risk Assessment: Do you want to hurt yourself or someone else? Patient reports no desire to harm self or others. Triage Assessment: 11:06 General: Appears in no apparent distress. comfortable, Behavior is calm, cooperative, ld1 appropriate for age. Pain: Denies pain. EENT: No signs and/or symptoms were reported regarding the EENT system. Neuro: Level of Consciousness is awake, alert, obeys commands, Oriented to person, place, time, situation. Cardiovascular: Capillary refill < 3 seconds Patient's skin is warm and dry. Respiratory: Airway is patent Respiratory effort is even, unlabored. GI: Abdomen is flat, non-distended. : No signs and/or symptoms were reported regarding the genitourinary system. Derm: Rash noted that is itchy. Musculoskeletal: No signs and/or symptoms reported regarding the musculoskeletal system. 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 - Social history:: Smoking status: Patient denies any tobacco usage or history of. Patient/guardian denies using alcohol. Screenin:10 [facility] ED Fall Risk Assessment (Adult) History of falling in the last 3 months, nj1 including since admission No falls in past 3 months (0 pts) Confusion or Disorientation No (0 pts) Intoxicated or Sedated No (0 pts) Impaired Gait No (0 pts) Mobility Assist Device Used No (0 pt) Altered Elimination No (0 pt) Score/Fall Risk Level 0 - 2 = Low Risk Oriented to surroundings, Maintained a safe environment, Hourly rounding (assess needs \T\ fall precautionary measures) done. 11:10 Abuse screen: Denies threats or abuse. Denies injuries from another. Nutritional nj1 screening: No deficits noted. Tuberculosis screening: No symptoms or risk factors identified. Vital Signs: 11:05 Weight 88.9 kg; Height 5 ft. 5 in. ; Pain 0/10; ld1 11:10 BP 115 / 80; Pulse 85; Resp 16; Temp 98.8(O); Pulse Ox 99% on R/A; nj1 11:05 Body Mass Index 32.62 (88.90 kg, 165.1 cm) ld1 11:05 Pain Scale: Adult ld1 ED Course: 10:56 Patient arrived in ED. mr 10:57 Moses Oconnell PA is PHCP. jmm 10:57 Wilferdo Rodrigues MD is Attending Physician. jmm 11:05 Yadira Lim, RN is Primary Nurse. nj1 11:06 Triage completed. ld1 11:06 Arm band placed on right wrist. ld1 11:10 Patient has correct armband on for positive identification. Bed in low position. Call [facility] light in reach. Adult w/ patient. 11:15 Kale Dodge MD is Referral Physician. jmm 11:15 No provider procedures requiring assistance completed. Patient did not have IV access [facility] during this emergency room visit. Administered Medications: No medications were administered Medication: 11:20 VIS not applicable for this client. nj1 Outcome: 11:15 Discharge ordered by . jm 11:20 Discharged to home ambulatory, with family. nj1 11:20 Condition: stable 11:20 Discharge instructions given to patient, family, Instructed on discharge instructions, follow up and referral plans. medication usage, Demonstrated understanding of instructions, follow-up care, medications, Prescriptions given X 3. 11:30 Patient left the ED. nj1 Signatures: Moses Oconnell PA PA jmm Rivera, Mary mr Sims, Lauren, RN RN ld1 Yadira Lim RN RN nj1
--- NOTE | 2022-08-20 11:15 | EDPHYS ---
Physician Documentation [facility] Name: Arlene Hatch Age: 31 yrs Sex: Female : 1990 Arrival Date: 08/20/2022 Time: 10:52 Bed 13 Private MD: ED Physician Wilfredo Rodrigues HPI: 08/20 11:13 This 31 yrs old Female presents to ER via Ambulatory with complaints of Rash. [facility] 11:13 Is a 31-year-old female with no chronic medical conditions that presents to the [facility] emergency department with complaints of rash to the arms, chest. Children had similar rash which cleared. Patient states the rash is itchy, denies fever, denies swelling sensation to her throat.. 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 - Social history:: Smoking status: Patient denies any tobacco usage or history of. Patient/guardian denies using alcohol. ROS: 11:13 Constitutional: Negative for fever, chills, and weight loss, Cardiovascular: Negative [facility] for chest pain, palpitations, and edema, Respiratory: Negative for shortness of breath, cough, wheezing, and pleuritic chest pain. 11:13 Skin: Positive for rash. 11:13 All other systems are negative. Exam: 11:13 Constitutional: This is a well developed, well nourished patient who is awake, alert, jmm and in no acute distress. Head/Face: atraumatic. Eyes: EOMI, no conjunctival erythema appreciated ENT: Moist Mucus Membranes Neck: Trachea midline, Supple Chest/axilla: Normal chest wall appearance and motion. Cardiovascular: Regular rate and rhythm. No edema appreciated Respiratory: Normal respirations, no respiratory distress appreciated Abdomen/GI: Non distended Back: Normal ROM 11:13 MS/ Extremity: Moves all extremities, no obvious deformities appreciated, no edema noted to the lower extremities Neuro: Awake and alert Psych: Behavior is normal, Mood is normal, Patient is cooperative and pleasant 11:13 Skin: Papular rash noted to the arms and chest, no induration, nontender to palpation. Vital Signs: 11:05 Weight 88.9 kg; Height 5 ft. 5 in. ; Pain 0/10; ld1 11:10 BP 115 / 80; Pulse 85; Resp 16; Temp 98.8(O); Pulse Ox 99% on R/A; nj1 11:05 Body Mass Index 32.62 (88.90 kg, 165.1 cm) ld1 11:05 Pain Scale: Adult ld1 MDM: 11:13 Patient medically screened. [facility] 14:16 Differential diagnosis: allergic reaction. Data reviewed: vital signs, nurses notes. ED jmm course: Patient is alert nontoxic in appearance in the ED. Will treat with steroids. Patient otherwise advised to follow with dermatology and otherwise given strict return precautions. Patient instructed agrees to plan of care.. Administered Medications: No medications were administered Disposition: 16:15 Co-signature as Attending Physician, Wilfredo Rodrigues MD I reviewed the patient's care rt provided by the Advanced Practice Provider and agree with the diagnosis and treatment plan. Disposition Summary: 08/20/22 11:15 Discharge Ordered Location: Home [facility] Condition: Stable jmm Diagnosis - Rash and other nonspecific skin eruption jmm Followup: jmm - With: Private Physician - When: 2 - 3 days - Reason: Recheck today's complaints, Continuance of care, Re-evaluation by your physician Followup: jm - With: Kale Dodge MD - When: 2 - 3 days - Reason: Recheck today's complaints, Continuance of care, Re-evaluation by your physician Discharge Instructions: - Discharge Summary Sheet [facility] - Rash, Adult jmm Forms: - Medication Reconciliation Form [facility] - Thank You Letter [facility] - Antibiotic Education [facility] - Prescription Opioid Use [facility] - Family Work Release rg4 Prescriptions: - Elimite 5 % Topical Cream - apply 1 application by TOPICAL route one time Wash after 12 hours.; 60 gram; [facility] Refills: 0, Product Selection Permitted - Hydroxyzine HCl 25 mg Oral Tablet - take 1 tablet by ORAL route every 6 hours As needed; 30 tablet; Refills: 0, [facility] Product Selection Permitted - Prednisone 20 mg Oral Tablet - take 3 tablets by ORAL route once daily for 5 days; 15 tablet; Refills: 0, [facility] Product Selection Permitted Signatures: Moses Oconnell PA PA jmm Sims, Lauren, RN RN ld1 Wilfredo Rodrigues MD MD rt
[2022-08-20 11:36] VITALS: BP 115/80; TEMP 98.8; O2SAT 99
== END 2022-08-20 11:30 | disposition home or self-care (01) ==
LOC: ER 10:52
DX: R21 Rash and other nonspecific skin eruption (principal)
CPT/HCPCS: 99283